=== PATIENT | female | born 1940 | race Caucasian/White ===

== ENCOUNTER 2017-05-15 12:09 | Inpatient (IN) ==
--- NOTE | 2017-05-15 12:51 | General Surg History&Physical ---
Addendum entered and electronically signed by Sheri Peter CNP 05/16/17 16: 06: Pt failed outpatient treatment with PO augmentin x7 days for right breast cellulitis. Original Note: <Sheri Peter - Last Filed: 05/15/17 14:10> Date of Encounter: 05/15/17 Time of Encounter: 12:51 Assessment and Plan (1) Cellulitis of right breast Current Visit: Yes Status: Acute Right breast. erythema, firm, some areas of fluctuates that may be consistent with seroma versus abscess. We will start IV antibiotics and reevaluate for the possibility of imaging versus incision and drainage and 24 hours. Plan: regular diet IV Zosyn Q8 hours warm moist compresses Q4 hours to the right breast draw margins around the area of cellulitis discomfort management, G.I. prophylaxis, DVT prophylaxis (on chronic eliquis). History of Present Illness HPI: Ms. Palacios is a 77 year old female who presents from the office for direct admission for right breast cellulitis s/p re-excision of right breast. Please see H&P per hard chart. Past Med Surg Social Fam HX - Past Medical History Medical history: atrial fibrillation, cancer, CHF, GERD, hyperlipidemia, thyroid disease Psychiatric history: no psych history - Past Surgical History Surgical History: cancer surgery, cataract, hysterectomy, knee replacement, pacemaker/AICD - Social History Smoking Status: Never smoker Smokeless Tobacco Status: No Alcohol use: none Drug use: none Medications and Allergies Apixaban [Eliquis] 5 mg PO BID 03/03/17 [History] Atorvastatin [Lipitor] 20 mg PO HS 03/03/17 [History] Calcium Carbonate [Calcium] 600 mg PO BID 03/03/17 [History] Cholecalciferol (Vitamin D3) [Vitamin D] 2,000 unit PO DAILY 03/03/17 [History] Enalapril Maleate [Vasotec] 5 mg PO DAILY 03/03/17 [History] Furosemide [Lasix] 40 mg PO DAILY 03/03/17 [History] Levothyroxine [Synthroid] 112 mcg PO DAILY 03/03/17 [History] Multivit-Min/FA/Lycopen/Lutein [Centrum Silver Tablet] 1 each PO DAILY 03/03/17 [History] Potassium Chloride [K-Tab ER] 20 meq PO DAILY 03/03/17 [History] Amoxicillin/Clavulanate [Augmentin] 1 tab PO BID 05/15/17 [History] 3 Allergy/AdvReac Type Severity Reaction Status Date / Time Warfarin [From Coumadin] Allergy Severe Rash Verified 05/02/17 08:48 Penicillins Allergy Hives Verified 05/02/17 08:48 rivaroxaban [From Xarelto] AdvReac Severe See Verified 05/02/17 08:48 Comments Review of Systems All systems PM: A 10-system review of systems was performed and is negative for pertinent findings except as documented above in the HPI. Results - Labs All other labs normal. <Bladimir Jalloh M - Last Filed: 05/17/17 08:04> Date of Encounter: 05/15/17 History of Present Illness HPI: Ms. Palacios is a 77 year old female Review of Systems All systems PM: A 10-system review of systems was performed and is negative for pertinent findings except as documented above in the HPI. General Surgery Exam Initial Vital Signs Temp Pulse Resp BP Pulse Ox 98.4 F 84 15 143/83 94 05/15/17 13:28 05/15/17 13:28 05/15/17 13:28 05/15/17 13:28 05/15/17 13:28 Results - Labs 05/16/17 08:59 05/16/17 08:59 Abnormal lab results PT 24.0 Seconds (9.4-12.1) H 05/15/17 13:55 Glucose 194 mg/dL (70-99) H 05/16/17 08:59 Diabetes panel 05/16/17 Range/Units 08:59 Sodium 139 (136-145) mEq/L Potassium 4.0 (3.5-4.5) mEq/L Chloride 101 (98-109) mEq/L Carbon Dioxide 28 (19-29) mEq/L BUN 14 (7-20) mg/dL Creatinine 0.87 (0.57-1.11) mg/dL Glucose 194 H (70-99) mg/dL Calcium 9.1 (8.6-10.8) mg/dL Calcium panel 05/16/17 Range/Units 08:59 Calcium 9.1 (8.6-10.8) mg/dL Pituitary panel 05/16/17 Range/Units 08:59 Sodium 139 (136-145) mEq/L Potassium 4.0 (3.5-4.5) mEq/L Chloride 101 (98-109) mEq/L Carbon Dioxide 28 (19-29) mEq/L BUN 14 (7-20) mg/dL Creatinine 0.87 (0.57-1.11) mg/dL Glucose 194 H (70-99) mg/dL Calcium 9.1 (8.6-10.8) mg/dL Adrenal panel 05/16/17 Range/Units 08:59 Sodium 139 (136-145) mEq/L Potassium 4.0 (3.5-4.5) mEq/L Chloride 101 (98-109) mEq/L Carbon Dioxide 28 (19-29) mEq/L BUN 14 (7-20) mg/dL Creatinine 0.87 (0.57-1.11) mg/dL Glucose 194 H (70-99) mg/dL Calcium 9.1 (8.6-10.8) mg/dL All other labs normal. - Attending Attestation I have personally performed a face to face evaluation on this patient. I have reviewed and agree with the care plan. History and Exam by me shows: Review the above assessment and evaluation and agree with the above plan. Will start IV antibiotics and monitor the result with respect to her cellulitis.
[2017-05-15] MEDS ORDERED: Lidocaine -MPF 1% 5 ML AMPUL INFILT ONE (13:14)
[2017-05-15] MEDS ORDERED: *HR* OxyCODONE/APAP 5/325 TABLET PO PRN (13:28)
[2017-05-15] MEDS ORDERED: Ondansetron ODT 4 MG TAB.RAPDIS SL PRN (13:28)
[2017-05-15] MEDS ORDERED: Lidocaine 1% 20 ML MDV INFILT ONE (13:28)
[2017-05-15] MEDS ORDERED: Ibuprofen 800 MG TABLET PO PRN (13:28)
[2017-05-15 14:14] LABS: Basophils # 0.1 K/mcL (0.0-0.2); Basophils % 0.6 %; Eosinophils % 0.4 %; Hematocrit 37.8 % (35.3-44.9); Hemoglobin 12.2 g/dL (11.5-15.4); Immature Granulocytes % 0.6 % (0-4); Lymphocytes # 1.6 K/mcL (0.6-4.6); Lymphocytes % 14.3 %; Mean Corpuscular HGB Conc 32.3 g/dL (31.6-35.5); Mean Corpuscular Hemoglobin 30.7 pg (28.0-33.3); Mean Corpuscular Volume 95.2 fL (83.0-100.0); Mean Platelet Volume 11.4 fL (9.4-12.4); Monocytes # 0.9 K/mcL (0.0-1.3); Monocytes % 7.8 %; Neutrophils # 8.4 K/mcL (1.6-8.9); Platelet Count 246 K/mcL (140-400); Red Blood Count 3.97 M/mcL (3.82-4.97); Red Cell Distribution Width 13.5 % (11.5-14.5); Segmented Neutrophils % 76.3 %
[2017-05-15 14:15] LABS: BUN/Creatinine Ratio 21 (6-26); Blood Urea Nitrogen 17 mg/dL (7-20); Carbon Dioxide 27 mEq/L (19-29); Chloride 101 mEq/L (98-109); Glucose 117 mg/dL (70-99); Osmolality,Calculated 291 (280-300); Potassium 3.8 mEq/L (3.5-4.5); Sodium 139 mEq/L (136-145); eGFR For African Americans > 60 (> 60); eGFR For Non-African Americans > 60 (> 60)
[2017-05-15 14:20] LABS: INR 2.2
[2017-05-15 14:23] LABS: Activated Partial Thrombo Time 35.2 Seconds (26.0-36.0)
[2017-05-15] MEDS: Pantoprazole 40 MG VIAL IVP SCH (15:24)
[2017-05-15] MEDS: Piperacillin/Tazobactam 3.375 GM/200 ML BAG IVPB SCH ×2 (15:28→23:25)
[2017-05-15] MEDS: APIXABAN 5 MG TABLET PO SCH (20:28)
[2017-05-16] MEDS: Piperacillin/Tazobactam 3.375 GM/200 ML BAG IVPB SCH ×3 (06:28→22:51)
--- NOTE | 2017-05-16 08:59 | General Surgery Progress Note ---
Addendum entered and electronically signed by Sheri Peter CNP 05/16/17 16: 09: Late entry addendum: Nya Conde CNP called to floor per bedside RN for patient draining from incision. Her incision was opened with a q-tip and a large amount of purulent material was returned. Wound cultures obtained. Packed with mesalt and covered with a dry dressing. She is noted to have failed outpatient Augmentin (x7 days) with progressing cellulitis despite a normal WBC. As noted below, remain in the hospital for 2-3 days of IV antibiotics and wound care. Possibly wound-vac placement given size of cavity packed with Mesalt. Original Note: <Sheri Peter - Last Filed: 05/16/17 11:14> Date of Encounter: 05/16/17 Time of Encounter: 08:57 - Assessment and Plan (1) Cellulitis of right breast Current Visit: Yes Status: Acute The right breast is errythematic and indurated, and small areas of fluctuance remain at the 12 o'clock position. Consistent with cellulitis and seroma. The margins have greatly improved with IV antibiotics. Plan: 1. Daily margins around the errythema to assess size 2. Repeat CBC 3. Continue IV antibiotics another 2 to 3 days pending clinical course 4. Serial exams 5. GDI and DVT prophylaxis. 6. Discomfort management 7. 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 She does not want chemotherapy, will re-discuss after final pathology if indicated. Qualifiers: Breast location: unspecified site of breast Estrogen receptor status: unspecified Patient sex: female Qualified Code(s): C50.911 - Malignant neoplasm of unspecified site of right female breast (3) Chronic atrial fibrillation Current Visit: Yes Status: Chronic Chronic anticoagulation with Apixiban s/p cardioversion x2 2014 and 2015 s/p PPM 2014 (4) Essential (primary) hypertension Current Visit: Yes Status: Chronic Controlled. Continue current medical regimen. (5) Hypothyroid Current Visit: Yes Status: Chronic Continue home medications Qualifiers: Hypothyroidism type: unspecified Qualified Code(s): E03.9 - Hypothyroidism , unspecified (6) GERD (gastroesophageal reflux disease) Current Visit: Yes Status: Chronic Protonix IV daily Qualifiers: Esophagitis presence: without esophagitis Qualified Code(s): K21.9 - Gastro -esophageal reflux disease without esophagitis (7) History of CHF (congestive heart failure) Current Visit: Yes Status: Chronic No signs of CHF currently Subjective Patient reports: no new complaints, feels better, still having pain, pain is less, tolerating a regular diet, voiding w/o difficulty, flatus, no bowel movement, afebrile Narrative: Niesha states she feels as though her right breast pain has improved. She states the press does not feel as heavy when she bends over and there is less discomfort at rest. She states the redness has improved. She denies fever or chills. She denies any drainage overnight. Objective Vital Signs - Last 8 Hours Temp Pulse Resp BP Pulse Ox 05/16/17 07:53 97.9 F 76 14 136/70 93 05/16/17 04:21 97.9 F 80 15 134/84 96 Intake and Output 05/15/17 05/16/17 05/16/17 23:59 07:59 15:59 Intake Total 500 / 500 400 / 400 Output Total 350 / 350 Balance 150 / 150 400 / 400 Intake: IV Fluids 200 / 200 200 / 200 Zosyn Premix 3.375 GM/200 ML 3. 200 / 200 200 / 200 375 gm In 200 ml @ 50 mls/hr IVPB Q8H KAREN Rx#:[id number] Oral 300 / 300 200 / 200 Output: Urine 350 / 350 Other: Meal Dinner Percent of Meal Consumed 5% # Voids 1 Weight 76.3 kg Patient Weight 05/16/17 23:59 Weight 76.3 kg - General physical appearance well developed, no distress, other (Sitting upright and chair) - Eyes normal ocular movement - ENT normal nares, no congestion - Neck Neck exam: trachea midline, no venous distension - Respiratory normal expansion, normal respiratory effort, clear to auscultation - Cardiovascular Cardiovascular exam: Present: RRR - Abdomen Abdomen: Present: bowel sounds present, soft, non tender - Incision Incision: Present: clean and dry, erythema (The right breast is errythematic and indurated, and small areas of fluctuance remain at the 12 o'clock position. Consistent with cellulitis and seroma. The margins have greatly improved with IV antibiotics.) - Integumentary other (see above) - Neurologic normal coordination, normal sensation - Musculoskeletal normal gait, normal posture - Psychiatric oriented to time, oriented to person, oriented to place, speech is normal, memory intact - Labs 05/16/17 08:59 05/16/17 08:59 Diabetes panel 05/15/17 Range/Units 13:55 Sodium 139 (136-145) mEq/L Potassium 3.8 (3.5-4.5) mEq/L Chloride 101 (98-109) mEq/L Carbon Dioxide 27 (19-29) mEq/L BUN 17 (7-20) mg/dL Creatinine 0.82 (0.57-1.11) mg/dL Glucose 117 H (70-99) mg/dL Calcium 9.0 (8.6-10.8) mg/dL Calcium panel 05/15/17 Range/Units 13:55 Calcium 9.0 (8.6-10.8) mg/dL Pituitary panel 05/15/17 Range/Units 13:55 Sodium 139 (136-145) mEq/L Potassium 3.8 (3.5-4.5) mEq/L Chloride 101 (98-109) mEq/L Carbon Dioxide 27 (19-29) mEq/L BUN 17 (7-20) mg/dL Creatinine 0.82 (0.57-1.11) mg/dL Glucose 117 H (70-99) mg/dL Calcium 9.0 (8.6-10.8) mg/dL Adrenal panel 05/15/17 Range/Units 13:55 Sodium 139 (136-145) mEq/L Potassium 3.8 (3.5-4.5) mEq/L Chloride 101 (98-109) mEq/L Carbon Dioxide 27 (19-29) mEq/L BUN 17 (7-20) mg/dL Creatinine 0.82 (0.57-1.11) mg/dL Glucose 117 H (70-99) mg/dL Calcium 9.0 (8.6-10.8) mg/dL Consult Discharge Plan - Plan Referrals: Savanah Deleon, [employer] T[employer]OR [Primary Care Provider] - <Bladimir Jalloh - Last Filed: 05/17/17 08:06> Date of Encounter: 05/16/17 Objective Vital Signs - Last 8 Hours Temp Pulse Resp BP Pulse Ox 05/17/17 07:44 97.7 F 81 16 137/81 96 05/17/17 03:35 98.0 F 81 14 121/70 96 Intake and Output 05/16/17 05/17/17 05/17/17 23:59 07:59 15:59 Intake Total 440 / 440 200 / 200 Output Total 400 / 400 250 / 250 Balance 40 / 40 -50 / -50 Intake: IV Fluids 200 / 200 200 / 200 Zosyn Premix 3.375 GM/200 ML 3. 200 / 200 200 / 200 375 gm In 200 ml @ 50 mls/hr IVPB Q8H KAREN Rx#:[id number] Oral 240 / 240 0 / 0 Output: Urine 400 / 400 250 / 250 Other: Meal Dinner Percent of Meal Consumed 75% # Voids 2 Weight 76.8 kg Patient Weight 05/17/17 23:59 Weight 76.8 kg - Labs 05/16/17 08:59 05/16/17 08:59 Diabetes panel 05/16/17 Range/Units 08:59 Sodium 139 (136-145) mEq/L Potassium 4.0 (3.5-4.5) mEq/L Chloride 101 (98-109) mEq/L Carbon Dioxide 28 (19-29) mEq/L BUN 14 (7-20) mg/dL Creatinine 0.87 (0.57-1.11) mg/dL Glucose 194 H (70-99) mg/dL Calcium 9.1 (8.6-10.8) mg/dL Calcium panel 05/16/17 Range/Units 08:59 Calcium 9.1 (8.6-10.8) mg/dL Pituitary panel 05/16/17 Range/Units 08:59 Sodium 139 (136-145) mEq/L Potassium 4.0 (3.5-4.5) mEq/L Chloride 101 (98-109) mEq/L Carbon Dioxide 28 (19-29) mEq/L BUN 14 (7-20) mg/dL Creatinine 0.87 (0.57-1.11) mg/dL Glucose 194 H (70-99) mg/dL Calcium 9.1 (8.6-10.8) mg/dL Adrenal panel 05/16/17 Range/Units 08:59 Sodium 139 (136-145) mEq/L Potassium 4.0 (3.5-4.5) mEq/L Chloride 101 (98-109) mEq/L Carbon Dioxide 28 (19-29) mEq/L BUN 14 (7-20) mg/dL Creatinine 0.87 (0.57-1.11) mg/dL Glucose 194 H (70-99) mg/dL Calcium 9.1 (8.6-10.8) mg/dL - Attending Attestation I have personally performed a face to face evaluation on this patient. I have reviewed and agree with the care plan. History and Exam by me shows: I reviewed the above assessment and evaluation and agree with the above plan.
[2017-05-16] MEDS: APIXABAN 5 MG TABLET PO SCH ×2 (09:15→20:13)
[2017-05-16] MEDS: Pantoprazole 40 MG VIAL IVP SCH (09:15)
[2017-05-16] MEDS: Furosemide 40 MG TABLET PO SCH (09:15)
[2017-05-16 09:38] LABS: Basophils # 0.1 K/mcL (0.0-0.2); Basophils % 0.6 %; Eosinophils # 0.1 K/mcL (0.0-0.6); Eosinophils % 0.8 %; Hematocrit 40.1 % (35.3-44.9); Hemoglobin 12.8 g/dL (11.5-15.4); Immature Granulocytes % 0.6 % (0-4); Lymphocytes # 1.3 K/mcL (0.6-4.6); Lymphocytes % 12.6 %; Mean Corpuscular HGB Conc 31.9 g/dL (31.6-35.5); Mean Corpuscular Hemoglobin 30.5 pg (28.0-33.3); Mean Corpuscular Volume 95.7 fL (83.0-100.0); Mean Platelet Volume 11.4 fL (9.4-12.4); Monocytes # 0.5 K/mcL (0.0-1.3); Platelet Count 264 K/mcL (140-400); Red Blood Count 4.19 M/mcL (3.82-4.97); Red Cell Distribution Width 13.6 % (11.5-14.5); Segmented Neutrophils % 80.4 %
[2017-05-16 09:50] LABS: BUN/Creatinine Ratio 16 (6-26); Blood Urea Nitrogen 14 mg/dL (7-20); Calcium 9.1 mg/dL (8.6-10.8); Carbon Dioxide 28 mEq/L (19-29); Chloride 101 mEq/L (98-109); Glucose 194 mg/dL (70-99); Osmolality,Calculated 294 (280-300); Sodium 139 mEq/L (136-145); eGFR For African Americans > 60 (> 60); eGFR For Non-African Americans > 60 (> 60)
[2017-05-17] MEDS: Piperacillin/Tazobactam 3.375 GM/200 ML BAG IVPB SCH ×3 (06:04→21:40)
[2017-05-17] MEDS: Furosemide 40 MG TABLET PO SCH (09:12)
[2017-05-17] MEDS: APIXABAN 5 MG TABLET PO SCH ×2 (09:12→21:39)
[2017-05-17] MEDS: Pantoprazole 40 MG VIAL IVP SCH (09:13)
[2017-05-17] MEDS ORDERED: Lidocaine -MPF 1% 2 ML VIAL INFILT STA (10:35)
[2017-05-17] MEDS ORDERED: *HR* HYDROmorphone 2 MG/ML SYRINGE IVP ONE (11:20)
[2017-05-17] MEDS ORDERED: Lidocaine 1% 20 ML MDV INFILT STA (11:21)
--- NOTE | 2017-05-17 12:31 | General Surgery Progress Note ---
<Sheri Peter Yarelis - Last Filed: 05/17/17 12:27> Date of Encounter: 05/17/17 Time of Encounter: 12:00 - Assessment and Plan (1) Abscess of right breast Current Visit: Yes Status: Acute The right breast remains errythematic and indurated, and larger areas of fluctuance remain at the 12 o'clock position and noted purulent drainage. The area was opened with a Q-tip on 05/16 and noted large amount of purulent return. The margins have improved however the area is amenable to further incision and drainage. Wound cavity measuring 6cm(L) x 6 cm(W) x 4 cm (D) See procedure details. Plan: 1. Daily margins around the errythema to assess size 2. Repeat CBC 3. Continue IV antibiotics; will likely place wound back on 05/18/2017. 4. Serial exams 5. GI and DVT prophylaxis. 6. Discomfort management 7. Regular diet and activity is tolerated (2) Cellulitis of right breast Current Visit: Yes Status: Acute The right breast is errythematic and indurated, and small areas of fluctuance remain at the 12 o'clock position and noted purulent drainage. The margins have improved however the area is amenable to further incision and drainage. See procedure details. Plan: 1. Daily margins around the errythema to assess size 2. Repeat CBC 3. Continue IV antibiotics; will likely place wound back on 05/18/2017. 4. Serial exams 5. GI and DVT prophylaxis. 6. Discomfort management 7. 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 She does not want chemotherapy, will re-discuss after final pathology if indicated. Qualifiers: Breast location: unspecified site of breast Estrogen receptor status: unspecified Patient sex: female Qualified Code(s): C50.911 - Malignant neoplasm of unspecified site of right female breast (4) Chronic atrial fibrillation Current Visit: Yes Status: Chronic Chronic anticoagulation with Apixiban s/p cardioversion x2 2014 and 2015 s/p abalation s/p PPM 2014 (5) Essential (primary) hypertension Current Visit: Yes Status: Chronic Controlled. Continue current medical regimen. (6) Hypothyroid Current Visit: Yes Status: Chronic Continue home medications Qualifiers: Hypothyroidism type: unspecified Qualified Code(s): E03.9 - Hypothyroidism , unspecified (7) GERD (gastroesophageal reflux disease) Current Visit: Yes Status: Chronic Protonix IV daily Qualifiers: Esophagitis presence: without esophagitis Qualified Code(s): K21.9 - Gastro -esophageal reflux disease without esophagitis (8) History of CHF (congestive heart failure) Current Visit: Yes Status: Chronic Unspecified systolic versus diastolic and no outside records available to review at this time. No signs of CHF currently Subjective Patient reports: no new complaints, feels better, still having pain, pain is less, tolerating a regular diet, voiding w/o difficulty, flatus, bowel movement , afebrile Objective Vital Signs - Last 8 Hours Temp Pulse Resp BP Pulse Ox 05/17/17 10:40 97.5 F L 80 16 128/77 96 05/17/17 07:44 97.7 F 81 16 137/81 96 Intake and Output 05/16/17 05/17/17 05/17/17 23:59 07:59 15:59 Intake Total 440 / 440 200 / 200 440 / 440 Output Total 400 / 400 250 / 250 200 / 200 Balance 40 / 40 -50 / -50 240 / 240 Intake: IV Fluids 200 / 200 200 / 200 200 / 200 Zosyn Premix 3.375 GM/200 ML 3. 200 / 200 200 / 200 200 / 200 375 gm In 200 ml @ 50 mls/hr IVPB Q8H KAREN Rx#:[id number] Oral 240 / 240 0 / 0 240 / 240 Output: Urine 400 / 400 250 / 250 200 / 200 Other: Meal Dinner Breakfast Percent of Meal Consumed 75% 100% Stool Size Moderate Stool Consistency soft Stool Characteristics Normal for Patient Stool Color Brown # Voids 2 1 Weight 76.8 kg Patient Weight 05/17/17 23:59 Weight 76.8 kg - General physical appearance no distress - Eyes normal ocular movement - ENT atraumatic, normocephalic - Neck Neck exam: trachea midline, no venous distension - Respiratory normal expansion, normal respiratory effort, clear to auscultation - Cardiovascular Cardiovascular exam: Present: RRR - Abdomen Abdomen: Present: bowel sounds present, soft, non tender Hernia: none - Incision Incision: Present: inflamed (Right breast surgical site erythema is improved, flatulence remains, noted small area that was opened up with a Q-tip on 2016 continues draining purluent material.) - Integumentary no growths, other (See above) - Neurologic normal sensation - Musculoskeletal normal gait, normal posture - Psychiatric oriented to time, oriented to person, oriented to place, speech is normal, memory intact - Labs 05/16/17 08:59 05/16/17 08:59 Consult Discharge Plan - Plan Referrals: Savanah Deleon, HR OPERATIONS ADVISOR [Primary Care Provider] - Procedure: ABSCESS INCISION AND DRAINAGE NOTE INDICATION: Abscess manifested as a tender, swollen fluctuant mass in the superficial subcutaneous tissue. INFORMED CONSENT: The risks and benefits of the procedure including incomplete drainage, scarring, infection and bleeding was explained and the patient verbalized their understanding and wished to proceed with the procedure. PROCEDURE: The area of greatest fluctuance was identified, prepped, and draped in a sterile fashion. Local anesthetic (10 MLs of 2% lidocaine) was introduced subcutaneously over the area of greatest fluctuance. A linear incision was then made over the area of greatest fluctuance and within the previous surgical incision with immediate return of a large amount of purulent material. The wound was explored with a hemostat to break up loculations and irrigated with 40MLs saline solution. Once the wound was explored, cleaned, and irrigated, Dakins soaked Kerlix gauze packing was placed tightly (given chronic AC history ) in the wound. A dressing was then applied. FINDINGS: Purulent drainage. EBL: <5 mL COMPLICATIONS: None. Signature: CRISTA Person-C <Bladimir Jalloh - Last Filed: 05/18/17 07:23> Date of Encounter: 05/17/17 Objective Vital Signs - Last 8 Hours Temp Pulse Resp BP Pulse Ox 05/18/17 04:10 98.2 F 81 15 134/81 97 Intake and Output 05/17/17 05/17/17 05/18/17 15:59 23:59 07:59 Intake Total 680 / 680 440 / 440 200 / 200 Output Total 200 / 200 0 / 0 Balance 480 / 480 440 / 440 200 / 200 Intake: IV Fluids 200 / 200 200 / 200 200 / 200 Zosyn Premix 3.375 GM/200 ML 3. 200 / 200 200 / 200 200 / 200 375 gm In 200 ml @ 50 mls/hr IVPB Q8H KAREN Rx#:[id number] Oral 480 / 480 240 / 240 0 / 0 Output: Urine 200 / 200 0 / 0 Other: Meal Lunch Dinner Percent of Meal Consumed 50% 100% Stool Size Moderate Stool Consistency soft Stool Characteristics Normal for Patient Stool Color Brown # Voids 3 2 Weight 77.9 kg Patient Weight 05/18/17 23:59 Weight 77.9 kg - Labs 05/16/17 08:59 05/16/17 08:59 - Attending Attestation I have personally performed a face to face evaluation on this patient. I have reviewed and agree with the care plan. History and Exam by me shows: I reviewed with the assessment and evaluation and agree with the above plan.
[2017-05-18] MEDS: Piperacillin/Tazobactam 3.375 GM/200 ML BAG IVPB SCH ×2 (05:43→14:43)
[2017-05-18] MEDS: Furosemide 40 MG TABLET PO SCH (10:32)
[2017-05-18] MEDS: APIXABAN 5 MG TABLET PO SCH (10:32)
[2017-05-18 11:15] LABS: Basophils # 0.1 K/mcL (0.0-0.2); Basophils % 0.7 %; Eosinophils % 0.4 %; Hemoglobin 13.4 g/dL (11.5-15.4); Immature Granulocytes % 0.5 % (0-4); Lymphocytes # 1.5 K/mcL (0.6-4.6); Lymphocytes % 13.5 %; Mean Corpuscular HGB Conc 32.7 g/dL (31.6-35.5); Mean Corpuscular Hemoglobin 31.2 pg (28.0-33.3); Mean Corpuscular Volume 95.3 fL (83.0-100.0); Mean Platelet Volume 10.8 fL (9.4-12.4); Monocytes # 0.5 K/mcL (0.0-1.3); Monocytes % 4.6 %; Neutrophils # 8.7 K/mcL (1.6-8.9); Platelet Count 290 K/mcL (140-400); Red Cell Distribution Width 13.6 % (11.5-14.5); Segmented Neutrophils % 80.3 %
[2017-05-18 11:23] VITALS: BP 151/80
[2017-05-18 11:26] LABS: BUN/Creatinine Ratio 17 (6-26); Blood Urea Nitrogen 15 mg/dL (7-20); Calcium 9.8 mg/dL (8.6-10.8); Carbon Dioxide 28 mEq/L (19-29); Chloride 101 mEq/L (98-109); Glucose 136 mg/dL (70-99); Osmolality,Calculated 291 (280-300); Sodium 139 mEq/L (136-145); eGFR For African Americans > 60 (> 60); eGFR For Non-African Americans > 60 (> 60)
[2017-05-18 11:30] LABS: Potassium 4.4 mEq/L (3.5-4.5)
--- NOTE | 2017-05-18 11:49 | Discharge Summary ---
Date of Encounter: 05/18/17 Time of Encounter: 11:49 - Discharge Diagnosis (1) Abscess of right breast Priority: Primary Status: Acute (2) Cellulitis of right breast Priority: Primary Status: Acute Code(s): N61.0 - Mastitis without abscess (3) Breast cancer, right breast Priority: Secondary Status: Chronic Qualifiers: Breast location: unspecified site of breast Estrogen receptor status: unspecified Patient sex: female Qualified Code(s): C50.911 - Malignant neoplasm of unspecified site of right female breast (4) Chronic atrial fibrillation Priority: Secondary Status: Chronic (5) Essential (primary) hypertension Priority: Secondary Status: Chronic (6) Hypothyroid Priority: Secondary Status: Chronic Qualifiers: Hypothyroidism type: unspecified Qualified Code(s): E03.9 - Hypothyroidism , unspecified (7) GERD (gastroesophageal reflux disease) Priority: Secondary Status: Chronic Qualifiers: Esophagitis presence: without esophagitis Qualified Code(s): K21.9 - Gastro -esophageal reflux disease without esophagitis (8) History of CHF (congestive heart failure) Priority: Secondary Status: Chronic - Discharge Medications Prescriptions: OxyCODONE/APAP 5/325 [Percocet 5/325 MG] 1 each PO Q6HR PRN #28 tablet PRN Reason: Pain Sulfamethoxazole/Trimeth DS [Bactrim DS] 1 each PO BID #28 tablet Home Medications: Apixaban [Eliquis] 5 mg PO BID 03/03/17 [History] Atorvastatin [Lipitor] 20 mg PO HS 03/03/17 [History] Calcium Carbonate [Calcium] 600 mg PO BID 03/03/17 [History] Cholecalciferol (Vitamin D3) [Vitamin D3] 2,000 unit PO DAILY 03/03/17 [History] Enalapril Maleate [Vasotec] 5 mg PO DAILY 03/03/17 [History] Furosemide [Lasix] 40 mg PO DAILY 03/03/17 [History] Levothyroxine [Synthroid] 112 mcg PO DAILY 03/03/17 [History] Multivit-Min/FA/Lycopen/Lutein [Centrum Silver Tablet] 1 each PO DAILY 03/03/17 [History] OxyCODONE/APAP 5/325 [Percocet 5/325 MG] 1 each PO Q6HR PRN #28 tablet 05/18/17 [Rx] Sulfamethoxazole/Trimeth DS [Bactrim DS] 1 each PO BID #28 tablet 05/18/17 [Rx] Allergies/Adverse Reactions: 3 Allergy/AdvReac Type Severity Reaction Status Date / Time Warfarin [From Coumadin] Allergy Severe Rash Verified 05/02/17 08:48 Penicillins Allergy Hives Verified 05/02/17 08:48 rivaroxaban [From Xarelto] AdvReac Severe See Verified 05/02/17 08:48 Comments General Surgery Exam Initial Vital Signs Temp Pulse Resp BP Pulse Ox 98.4 F 84 15 143/83 94 05/15/17 13:28 05/15/17 13:28 05/15/17 13:28 05/15/17 13:28 05/15/17 13:28 - Additional Findings VITAL SIGNS: Reviewed. GENERAL: In no apparent distress. HEENT: atraumatic, normocephalic, normal occular movements, hearing grossly intact. Oropharynx WNL NECK: No adenopathy, no JVD. CHEST: Chest with clear breath sounds bilaterally. No wheezes, rales, or rhonchi. CARDIAC: Regular rate and rhythm. S1 and S2, without murmurs, gallops, or rubs. VASCULAR: No Edema. Peripheral pulses normal and equal in all extremities. ABDOMEN: Active bowel sounds in all 4 quadrants. Nontender. MUSCULOSKELETAL: no focal deficits noted. NEUROLOGIC EXAM: Alert and oriented x 3. No focal sensory or strength deficits. Speech normal. Follows commands. PSYCHIATRIC: Pleasant affect. Mood normal. SKIN: erythema noted but decreased, granulation tissue noted, Wound Vac dressing applied. Date of admission: 05/16/17 18:18 Primary care physician: Savanah Deleon CNP Consults: 05/18/17 08:45 Consult to Stamp Classifier [CONS] Stat Reason for SW Consult: d/c planning for possibly today. Will need HH and wound vac therapy. Discharging clinician: Bladimir Jalloh (Rigo Peter) Anticipated date of discharge: 05/18/17 - Patient Status Disposition: Home Health Service Condition: Good Functional capacity at discharge: independent ambulation Overall status at discharge: patient is progressing back to baseline - Discharge Instructions Instructions: Abscess (GEN), Negative Pressure Wound Therapy (DC) Follow Up With: Savanah Deleon CNP [Primary Care Provider] - Rome,Sheri L, [employer]PERVISOR [Advanced Practice Nurse] - 06/02/17 8:40 am Additional Instructions: -Hold potassium while taking Bactrim antibiotics. Obtain repeat BMP in 2 weeks. -Wound VAC changes per home health every Monday/Monday/Monday with white foam in the tunneling cavity (12 o'clock to the 10 o'clock position), covered by black film and a bridge dressing. -Do not place black foam on bare skin. On the days of wound vac changes, just prior to the arrival of your home health care nurse, you may remove the dressing and packing, shower, and the home health care nurse can repack the area. Take your antibiotics as directed. - Diet and Activity Activity: increase activity as tolerated Diet: advance to your usual diet - Hospital Course Hospital course: Ms. Palacios is a 77 year old female who presented on 05/15/2017 for direct admission of failed outpatient PO antibiotic therapy (Augmentin) for right breast cellulitis status post excision and re-exhibition of right breast area. She was started on IV antibiotics (Zosyn) and observed for approximately 24 hours. There was noted improvement in the surrounding errythemic areas; however she did develop an area of drainage within the previous surgical incision line on the medial side of the breast. This area was opened with a Q- tip and a large amount of purulent material was returned. On 05/17/2017, the medial area of the breast was appropriately localized and an incision and drainage was performed with a large amount of purulent material returned. The area was packed with Kerlix soaked in dakins and covered with a dry dressing. On 05/18/2017, a wound VAC was applied. She is ambulating and voiding without difficulty, tolerating regular diet, is afebrile, her vital signs are stable, there is no evidence of bleeding, we will begin discharge planning to home with follow-up in office in approximately 2 weeks. Wound VAC changes will be completed per home healthcare nurses. Cultures were obtained which shows staph aureus with susceptibility to Bactrim DS. - Time Spent with Patient Total time spent providing and/or coordinating discharge services: Labs on day of discharge: Labs from last 24 hours 05/18/17 05/18/17 11:06 11:06 WBC 10.8 RBC 4.30 Hgb 13.4 Hct 41.0 MCV 95.3 MCH 31.2 MCHC 32.7 RDW 13.6 Plt Count 290 MPV 10.8 Immature Gran % 0.5 Seg Neutrophils % 80.3 Lymphocytes % 13.5 Monocytes % 4.6 Eosinophils % 0.4 Basophils % 0.7 Neutrophils # 8.7 Lymphocytes # 1.5 Monocytes # 0.5 Eosinophils # 0.0 Basophils # 0.1 Sodium 139 Potassium 4.4 Chloride 101 Carbon Dioxide 28 BUN 15 Creatinine 0.86 Est GFR ( Amer) > 60 Est GFR (Non-Af Amer) > 60 BUN/Creatinine Ratio 17 Glucose 136 H Calculated Osmolality 291 Calcium 9.8 Preliminary micro results at discharge 05/15/17 13:55 Blood Culture - Preliminary Peripheral Venipuncture No growth. 05/15/17 13:55 Blood Culture - Preliminary Peripheral Venipuncture No growth.
--- NOTE | 2017-05-18 11:50 | Physician Discharge Referral ---
Home Health/Hosp Referral Info Transfer to: Home Health Attending Provider: Dr. Bladimir Jalloh Provider in Charge Post Discharge: Other (Dr. Bladimir Jalloh) - Diagnosis (1) Abscess of right breast Priority: Primary Status: Acute (2) Cellulitis of right breast Priority: Primary Status: Acute (3) Breast cancer, right breast Priority: Secondary Status: Chronic (4) Chronic atrial fibrillation Priority: Secondary Status: Chronic (5) Essential (primary) hypertension Priority: Secondary Status: Chronic (6) Hypothyroid Priority: Secondary Status: Chronic (7) GERD (gastroesophageal reflux disease) Priority: Secondary Status: Chronic (8) History of CHF (congestive heart failure) Priority: Secondary Status: Chronic - Respiratory Orders Smoking Cessation: Smoking cessation has been advised. For more information, call the [place] Tobacco Quit Line at 7-004-MRVD-NOW. - Dressing/Wound Care Site: Right breast -Wound VAC changes per home health every Monday/Monday/Monday with white foam in the tunneling cavity (12 o'clock to the 10 o'clock position), covered by black film and a bridge dressing. -Do not place black foam on bare skin. On the days of wound vac changes, just prior to the arrival of your home health care nurse, you may remove the dressing and packing, shower, and the home health care nurse can repack the area. Take your antibiotics as directed. Type of Dressing/Treatments w/Frequency: Right breast -Wound VAC changes per home health every Monday/Monday/Monday with white foam in the tunneling cavity (12 o'clock to the 10 o'clock position), covered by black film and a bridge dressing. -Do not place black foam on bare skin. On the days of wound vac changes, just prior to the arrival of your home health care nurse, you may remove the dressing and packing, shower, and the home health care nurse can repack the area. Take your antibiotics as directed. - Diet/Nutrition Diet/Nutrition Orders: Regular - Activity Activity Orders: Up ad andra - Services Needed Following services are medically necessary services: Detention Care Orders: Hold Lisinopril while taking Bactrim. Repeat BMP in two weeks. Bactrim DS BID x2 weeks Right breast: -Wound VAC changes per home health every Monday/Monday/Monday with white foam in the tunneling cavity (12 o'clock to the 10 o'clock position), covered by black film and a bridge dressing. -Do not place black foam on bare skin. On the days of wound vac changes, just prior to the arrival of your home health care nurse, you may remove the dressing and packing, shower, and the home health care nurse can repack the area. Take your antibiotics as directed. Other Treatments: -Hold potassium while taking Bactrim antibiotics. Obtain repeat BMP in 2 weeks. - Transfer Medications Prescriptions: OxyCODONE/APAP 5/325 [Percocet 5/325 MG] 1 each PO Q6HR PRN #28 tablet PRN Reason: Pain Sulfamethoxazole/Trimeth DS [Bactrim DS] 1 each PO BID #28 tablet Home Medications: Apixaban [Eliquis] 5 mg PO BID 03/03/17 [History] Atorvastatin [Lipitor] 20 mg PO HS 03/03/17 [History] Calcium Carbonate [Calcium] 600 mg PO BID 03/03/17 [History] Cholecalciferol (Vitamin D3) [Vitamin D3] 2,000 unit PO DAILY 03/03/17 [History] Enalapril Maleate [Vasotec] 5 mg PO DAILY 03/03/17 [History] Furosemide [Lasix] 40 mg PO DAILY 03/03/17 [History] Levothyroxine [Synthroid] 112 mcg PO DAILY 03/03/17 [History] Multivit-Min/FA/Lycopen/Lutein [Centrum Silver Tablet] 1 each PO DAILY 03/03/17 [History] OxyCODONE/APAP 5/325 [Percocet 5/325 MG] 1 each PO Q6HR PRN #28 tablet 05/18/17 [Rx] Sulfamethoxazole/Trimeth DS [Bactrim DS] 1 each PO BID #28 tablet 05/18/17 [Rx] Allergies/Adverse Reactions: 3 Allergy/AdvReac Type Severity Reaction Status Date / Time Warfarin [From Coumadin] Allergy Severe Rash Verified 05/02/17 08:48 Penicillins Allergy Hives Verified 05/02/17 08:48 rivaroxaban [From Xarelto] AdvReac Severe See Verified 05/02/17 08:48 Comments Certification: Further, I certify that my clinical findings support that this patient is homebound (i.e. absences from home require considerable and taxing effort and are for medical reasons or [employer] services or infrequently or short duration when for other reasons) because: Homebound Reason: Patient requires assistance of a person or device to safely leave home, Leaving home requires considerable and taxing effort due to condition Attestation: My signature below is to certify that this patient is under my care and that I, or nurse practitioner, or a physician's marketing assistant working with me, has a face-to -face encounter with this patient.
[2017-05-18] MEDS ORDERED: Erythromycin OPTH Oint RIGHT EYE SCH (15:45)
== END 2017-05-18 16:30 | disposition home health service (06) | DRG 601 ==
LOC: 3ANU
PROVIDERS: ADMIT Surgery; ATTEND Surgery